=== PATIENT | male | born 1970 | race Caucasian/White ===

== ENCOUNTER 2018-06-04 14:44 | Emergency (ER) | payer SELFPAY ==
[~2018-06-04] VITALS: Ht 175.3 cm; Wt 88.5 kg
--- NOTE | 2018-06-04 15:15 | ED EENT ---
History of Present Illness General Chief Complaint: Ear Problems Stated Complaint: EAR PAIN Nursing Triage Note: C/O L EAR PAIN FOR 2-3 DAYS History of Present Illness Date Seen by Provider: Jun 04, 2018 Time Seen by Provider: 14:50 Initial Comments 13-year-old male presents for left ear pain. He states that it began yesterday and has continued today. He denies any recent ear infections or swimming. He reports since childhood having problems with impacted cerumen. Timing/Duration: yesterday Location: ear (L) Prearrival Treatment: no prearrival treatment Associated Symptoms: denies symptoms Allergies and Home Medications Allergies Coded Allergies: Penicillins (Verified Allergy, Unknown, 06/04/18) Home Medications No Active Prescriptions or Reported Meds Patient Home Medication List Home Medication List Reviewed: Yes Review of Systems Constitutional: no symptoms reported, see HPI Ears: See HPI, Pain, Other (patient denies change in hearing) All Other Systems Reviewed Negative Unless Noted: Yes Past Wrzutba-Ptvzdw-Qlpion Hx Past Med/Social Hx: Reviewed Nursing Past Med/Soc Hx Patient Social History Alcohol Use: Occasionally Uses Recreational Drug Use: Yes Smoking Status: Current Everyday Smoker 2nd Hand Smoke Exposure: Yes Recent Foreign Travel: No Contact w/Someone Who Travel: No Recent Infectious Disease Expo: No Past Medical History Surgeries: No Respiratory: No Cardiac: No Neurological: No Genitourinary: No Gastrointestinal: No Musculoskeletal: No Endocrine: No HEENT: No Cancer: No Did You Recieve Any Treatments: No Psychosocial: No Integumentary: No Physical Exam Vital Signs Vital Signs - First Documented 06/04/18 14:48 Temp 98.5 Pulse 100 Resp 18 B/P (MAP) 143/107 (119) Pulse Ox 97 O2 Delivery Room Air Height, Weight, BMI Height: 5'9.00" Weight: 195lbs. oz. 88.339294dn; BMI Method:Stated General Appearance: WD/WN, no apparent distress Eyes: bilateral eye normal inspection, bilateral eye PERRL, bilateral eye EOMI Ears: right ear canal normal, right ear TM normal; left ear swelling, left ear other (hard dark brown to black cerumen, approximately 90% of the canal occluded.); bilateral ear auricle normal Nose: normal inspection; No active bleeding, No discharge Mouth/Throat: normal mouth inspection, pharynx normal Neck: non-tender, full range of motion, supple, normal inspection Cardiovascular: normal peripheral pulses, regular rate, rhythm Respiratory: chest non-tender, lungs clear Neurologic/Psychiatric: no motor/sensory deficits, alert, normal mood/affect, oriented x 3 Progress/Results/Core Measures Results/Orders Vital Signs/I&O 06/04/18 06/04/18 14:48 15:20 Temp 98.5 Pulse 100 92 Resp 18 18 B/P (MAP) 143/107 (119) 141/100 Pulse Ox 97 98 O2 Delivery Room Air Blood Pressure Mean: 119 Progress Progress Note : Time: 14:50 Progress Note Initial evaluation completed, attempted to remove wax, due to how hard it was and the sensitivity of the ear canal only a small amount was removed. Empty to irrigate with sterile saline, no results. Patient did not tolerate further removal of the wax. Discharge instructions were explained to the patient including the ehkh-fyu-lvzvjrj use of medication to soften the wax and then Murine Earigate to remove it. There was no evidence of otitis externa present, only a small window of the TM was visible and did not show erythema or bulging. Discussed the importance of him following up with her primary care provider in establishing care for check on his blood pressure. He agreed with this treatment plan. Departure Impression Primary Impression: Impacted cerumen Qualified Codes: H61.22 - Impacted cerumen, left ear Additional Impression: Essential hypertension Disposition: 01 HOME, SELF-CARE Condition: Improved Departure-Patient Inst. Decision time for Depature: 15:10 Referrals: NO,LOCAL PHYSICIAN (PCP) Primary Care Physician Patient Instructions: Ear Wax Impaction (DC), High Blood Pressure (DC) Add. Discharge Instructions: Use kiru-urw-ctutewe Debrox drops to soften the wax in your ears, for 3-5 days. Then use Murine irrigate, to remove the wax. You may use Tylenol 650 mg alternating every 4 hours with ibuprofen 600 mg for the pain. Establish care with a primary care provider, for follow-up at an urgent care. Need to have blood pressure re-assessed and possibly treated. Return to emergency department for acute, urgent health care needs. All discharge instructions reviewed with patient and/or family. Voiced understanding. Scripts No Active Prescriptions or Reported Meds PAZ CHILDERS Jun 04, 2018 15:14
[2018-06-04 15:20] VITALS: BP 141/100
== END 2018-06-04 15:20 | disposition home or self-care (01) ==
LOC: EDUNIT# 14:44 → ER 14:46
DX: H61.22 Impacted cerumen, left ear (principal); I10 Essential (primary) hypertension; F17.200 Nicotine dependence, unspecified, uncomplicated; Z88.0 Allergy status to penicillin
CPT/HCPCS: 99282

== ENCOUNTER → 2021-02-21 | Outpatient (CLI) | payer OTHER ==
[~2021-02-21] MED LIST: NEO/5DRO3 OP
--- NOTE | 2021-02-21 12:47 | Diagnostic Imaging Report ---
Indication: Pain and a knot in the left shoulder. Time of Exam: 10:59 AM Two views left clavicle were obtained. Acromioclavicular and glenohumeral alignment are normal. Clavicle is intact. No fractures are seen. Overlying soft tissues are unremarkable. IMPRESSION: No acute abnormality is detected. Dictated by: Dictated on workstation # [id number]
--- NOTE | 2021-02-21 12:50 | Diagnostic Imaging Report ---
INDICATION: Left shoulder pain. TIME OF EXAM: 10:57 AM Three views left shoulder demonstrate normal glenohumeral and acromioclavicular alignment. Acromial humeral space is normal. No fracture or dislocation is seen. IMPRESSION: No acute bony abnormality is detected. Dictated by: Dictated on workstation # [id number]
== END ==
LOC: RAD 10:13
PROVIDERS: ATTEND Nurse Practitioner Family
DX: M25.512 Pain in left shoulder (principal); R22.32 Localized swelling, mass and lump, left upper limb
CPT/HCPCS: 73000; 73030

== ENCOUNTER → 2021-03-10 | Outpatient (CLI) | payer OTHER ==
--- NOTE | 2021-03-10 11:57 | Diagnostic Imaging Report ---
INDICATION: Swelling and lump in the left upper extremity. Palpable lump in the supraclavicular location at the level of the distal clavicle was evaluated. There is a hypoechoic nodule at this location measuring 7 mm x 5 mm x 9 mm. No internal vascularity is present. In addition, palpable lump left axilla was evaluated. There is a questionable lymph node measuring approximate 2.1 x 1.7 x 1.2 cm. No fluid collections are seen. IMPRESSION: Hypoechoic nodule at the level of the distal left clavicle, indeterminate. MRI of the left shoulder would be useful for better characterization. Dictated by: Dictated on workstation # [id number]
== END ==
LOC: RAD 10:00
PROVIDERS: ATTEND Nurse Practitioner Family
DX: R22.32 Localized swelling, mass and lump, left upper limb (principal)
CPT/HCPCS: 76881

== ENCOUNTER 2021-04-05 18:59 | Emergency (ER) | payer OTHER ==
[~2021-04-05] VITALS: Ht 175.2 cm; Wt 95.0 kg
--- NOTE | 2021-04-05 19:25 | ED Respiratory ---
General Chief Complaint: Respiratory Problems Stated Complaint: TICK BITES/SOA Nursing Triage Note: Pt ambulatory into ER with complaint of SOA x2 days after having two tick bites on back. Pt states that he feels like this comes and goes. Pt doesn't appear in distress and vitals are stable at this time. Pt denies chest pain or other symptoms. Source: patient Exam Limitations: no limitations History of Present Illness Date Seen by Provider: Apr 05, 2021 Time Seen by Provider: 19:09 Initial Comments Patient is a 51-year-old male who presents to the emergency department with a chief complaint of shortness of breath. Patient states that he has had the symptoms off and on for the last couple of days. Patient relates that he had 2 tick bites on his back 2 or 3 days ago. These were removed and he saw his primary care provider, Dr. Lopez. He states that he was started on antibiotics, doxycycline for tickborne illness. Patient denies any fevers, chills or worsening rashes. He states that he has 2 rather large red areas on his back. One on his left shoulder and 1 in his left mid back. Patient states that they are quite tender to palpation. He denies any other complaints of rash, joint swelling, chest pain, nausea, vomiting, dizziness or other symptoms. Patient does smoke up to three quarters of a pack of cigarettes daily. He states that he feels like he can take in a deep breath but he feels like he is not getting enough oxygen. No sick contacts. All other review of systems reviewed and negative except as stated above. Timing/Duration: yesterday Severity: moderate Prior Episodes/Possible Cause: illness exposure (Tick bite) Associated Symptoms: shortness of breath Allergies and Home Medications Allergies Coded Allergies: Penicillins (Verified Allergy, Unknown, 06/04/18) Home Medications David/Polymyx B Sulf/Dexameth 5 Ml Drops.susp, 2 DROPS OP QID Prescribed by: LILI ALVAREZ on 06/08/18 5172 Patient Home Medication List Home Medication List Reviewed: Yes Review of Systems Review of Systems Constitutional: see HPI EENTM: no symptoms reported Respiratory: No cough; short of breath Cardiovascular: no symptoms reported; No chest pain Gastrointestinal: no symptoms reported Genitourinary: no symptoms reported Musculoskeletal: no symptoms reported Skin: rash (Left back) Psychiatric/Neurological: Anxiety All Other Systems Reviewed Negative Unless Noted: Yes Past Yygbhsq-Dyeflv-Xsqrxi Hx Patient Social History Alcohol Use: Occasionally Uses Number of Drinks Today: AA Alcohol Beverage of Choice: Beer Smoking Status: Current Everyday Smoker Type Used: Cigarettes 2nd Hand Smoke Exposure: Yes Recent Infectious Disease Expo: No Recent Hopitalizations: No Immunizations Up To Date Tetanus Booster (TDap): Less than 5yrs PED Vaccines UTD: Yes Seasonal Allergies Seasonal Allergies: No Past Medical History Surgeries: No Respiratory: No Cardiac: No Neurological: No Genitourinary: No Gastrointestinal: No Musculoskeletal: No Endocrine: No HEENT: No Cancer: No Did You Recieve Any Treatments: No Psychosocial: No Integumentary: No Blood Disorders: No Physical Exam Vital Signs - First Documented 04/05/21 19:10 Temp 36.6 Pulse 94 Resp 20 B/P (MAP) 139/103 (115) Pulse Ox 98 O2 Delivery Room Air Capillary Refill : Less Than 3 Seconds Height: 5'9.00" Weight: 195lbs. oz. 88.931123xt; 30.00 BMI Method:Stated General Appearance: WD/WN, no apparent distress Eyes: Bilateral Eye Normal Inspection, Bilateral Eye PERRL, Bilateral Eye EOMI HEENT: PERRL/EOMI Neck: normal inspection Respiratory: no respiratory distress, no accessory muscle use; No decreased breath sounds, No accessory muscle use, No rales, No rhonchi; wheezing (Diffuse expiratory wheezing noted throughout bilateral lung pardo) Cardiovascular: regular rate, rhythm, no edema Gastrointestinal: normal bowel sounds, non tender, soft Extremities: normal range of motion, normal inspection, no pedal edema Neurologic/Psychiatric: no motor/sensory deficits, alert, normal mood/affect, oriented x 3 Skin: normal color, warm/dry, other (Patient has 2 lesions on the back one at the left posterior shoulder 1 in the left mid back each about 5 cm in diameter. Slightly raised and erythematous without areas of central clearing. These areas are tender to palpation. No other lesions to the skin are noted) Progress/Results/Core Measures Suspected Sepsis Recent Fever Within 48 Hours: No Infection Criteria Present: None New/Unexplained Altered Menta: No Sepsis Screen: No Definite Risk SIRS Temperature: Pulse: 94 Respiratory Rate: 20 Blood Pressure 139 /103 Mean: 115 Results/Orders My Orders Orders - WILLIS SHARP MD Albuterol/Ipra Inhalation Soln (Duoneb I (6/19/21 19:30) Svn Small Volume Nebulizer (04/05/21 19:17) Vital Signs/I&O 04/05/21 04/05/21 19:10 19:30 Temp 36.6 Pulse 94 90 Resp 20 20 B/P (MAP) 139/103 (115) 139/103 Pulse Ox 98 99 O2 Delivery Room Air Room Air Capillary Refill : Less Than 3 Seconds Blood Pressure Mean: 115 Progress Note : Time: 19:26 Progress Note Notified by the nurse that the patient decided to leave [place] after my evaluation and plan of treatment had been started. The patient was frustrated that I was not addressing his concerns. I had advised the patient that if he was on doxycycline he was receiving the appropriate treatment for Lyme disease and other tickborne illnesses. I advised him that I thought maybe a couple of things were going on at the same time. The patient was profoundly wheezy in no respiratory distress and oxygen saturations 96 to 97% on room air. My plan was to obtain a chest x-ray and give him a breathing treatment. I was then going to review with him the treatment for Lyme disease and the natural course and progression of the disease. Apparently the patient was very frustrated with this and decided to leave. Departure Impression Primary Impression: Shortness of breath Additional Impression: Skin rash Disposition: 07 AGAINST MEDICAL ADVICE Condition: Stable Departure-Patient Inst. Referrals: ECCI LOPEZ MD (PCP/Family) Primary Care Physician Copy Copies To 1: CECI LOPEZ MD, KATHRYN M MD Apr 05, 2021 19:25
[2021-04-05 19:30] VITALS: BP 139/103
[2021-04-05] MEDS ORDERED: RT-ALBUTEROL/IPRATROPIUM 3 ML (DUONEB) VIAL INH ONE (19:30)
== END 2021-04-05 19:30 | disposition left against medical advice (07) ==
LOC: EDUNIT# 18:59 → ER 19:02
DX: R06.02 Shortness of breath (principal); R21 Rash and other nonspecific skin eruption; F17.210 Nicotine dependence, cigarettes, uncomplicated; Z88.0 Allergy status to penicillin

== ENCOUNTER → 2021-05-05 | Outpatient (CLI) | payer OTHER ==
--- NOTE | 2021-05-05 09:58 | Diagnostic Imaging Report ---
PROCEDURE: US Hepatic (Liver). TECHNIQUE: Multiple real-time grayscale images were obtained over the right upper quadrant in various projections. INDICATION: Elevated liver function studies. FINDINGS: Liver measures 21 cm, its dense parenchyma is consistent with underlying fatty infiltration. This limits acoustical penetrability. No discrete liver mass can be found and no evidence for cyst. The bile ducts are nondilated. The gallbladder appeared normal. Extrahepatic duct is obscured. The intrahepatic ducts nondilated. The pancreas, aorta and much of the IVC are also obscured from visualization by gas. The unobstructed right kidney normal in size, cortical thickness and echotexture measuring 11.8 cm. There is no ascites. The Chang sign negative. IMPRESSION: Normal gallbladder. No stones or bile duct dilatation. Echodense fatty liver with no ascites, otherwise normal. Dictated by: Dictated on workstation # [id number]
== END ==
LOC: RAD 08:00
PROVIDERS: ATTEND Nurse Practitioner Family
DX: K76.0 Fatty (change of) liver, not elsewhere classified (principal)
CPT/HCPCS: 76705

== ENCOUNTER 2021-08-13 13:07 | Emergency (ER) | payer OTHER ==
[~2021-08-13] VITALS: Ht 175 cm; Wt 95.0 kg
[2021-08-13 13:16] VITALS: BP 166/124
--- NOTE | 2021-08-13 13:44 | ED Back Pain ---
General Chief Complaint: Back Problems Stated Complaint: BACK PAIN Nursing Triage Note: ARRVED VIA AMB TO FAST TRACK. COMPLAINS OF BACK PAIN STARTING AROUN 1500 YESTERDAY. HX OF BACK PAIN THAT USUALLY GOES AWAY BUT THIS HAS NOT. TOOK IBUPROFEN 800MG THIS AM. 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, AND NOTICED SOME PAIN IN MID AND LOWER BACK WHEN HE GOT OFF WORK YESTERDAY PAIN HAS CONTINUED TO WORSEN THROUGH THE NIGHT AND TODAY TOOK IBUPROFEN 800 MG THIS AM WITHOUT RELIEF PAIN IS WORSE WITH CERTAIN MOVEMENTS/POSITIONS STATES PAIN OCCASIONALLY SHOOTS DOWN TO BOTH HIPS AND DOWN BOTH ARMS NO NECK PAIN LEFT HAND FELT SLIGHTLY TINGLY YESTERDAY--BEFORE THE BACK PAIN STARTED HAS CHRONIC LEFT SHOULDER PROBLEMS--STATES HE WAS DX WITH A "CYST" AND HAS CHRONIC BILATERAL AXILLARY LYMPH NODE SWELLING--WORKUP'S HAVE ALL BEEN NEGATIVE FOR INFECTION OR MALIGNANCY PT CHRONIC BACK PAIN FOR YEARS, BUT IS NORMALLY IN THE UPPER BACK, AND HAS CHRONIC BACK SPASMS FOR YEARS--DOES NOT TAKE ANY MEDICATION FOR THOSE PROBLEMS NO PROBLEMS WALKING NO PROBLEMS URINATING OR WITH BM'S NO FEVER STATES A COUPLE OF WEEKS AGO, HE HAD SEVERE PAIN IN THIS SAME AREA, LASTED ABOUT A WEEK DID NOT SEEK CARE AT THAT TIME, SYMPTOMS GOT BETTER, AND THEN RETURNED YESTERDAY Other Comments PCP: DR. FRANCISCO Allergies and Home Medications Allergies Coded Allergies: Penicillins (Verified Allergy, Unknown, 06/04/18) Patient Home Medication List Home Medication List Reviewed: Yes Cyclobenzaprine HCl (Cyclobenzaprine HCl) 10 Mg Tablet, 10 MG PO Q8H PRN for SPASMS Prescribed by: DAVE JUAREZ on 08/13/21 1433 Methylprednisolone (Medrol) 4 Mg Tab.ds.pk, 4 MG PO UD Prescribed by: DAVE JUAREZ on 08/13/21 1433 David/Polymyx B Sulf/Dexameth (Maxitrol Eye Drops) 5 Ml Drops.susp, 2 DROPS OP QID Prescribed by: LILI ALVAREZ on 06/08/18 1844 Review of Systems Constitutional: no symptoms reported Respiratory: no symptoms reported Cardiovascular: no symptoms reported Gastrointestinal: no symptoms reported Musculoskeletal: see HPI Skin: no symptoms reported Psychiatric/Neurological: See HPI Past Qrwhxyt-Hsuzhy-Tubcsa Hx Patient Social History Tobacco Use?: Yes (1 PPD) Tobacco type used: Cigarettes Smoking Status: Current Everyday Smoker Substance use?: Yes Substance type: Marijuana Additional substance use comme: THC IN PAST Alcohol Use?: Yes Alcohol type: Beer Alcohol Frequency: Couple times a week Immunizations Up To Date Tetanus Booster (TDap): Less than 5yrs PED Vaccines UTD: Yes Seasonal Allergies Seasonal Allergies: No Past Medical History Surgeries: No Respiratory: No Cardiac: No Neurological: No Genitourinary: No Gastrointestinal: No Musculoskeletal: Yes (CHRONIC LEFT SHOULDER PAIN ) Chronic Back Pain Endocrine: No HEENT: No Cancer: No Did You Recieve Any Treatments: No Psychosocial: No Integumentary: No Blood Disorders: No Physical Exam Vital Signs Vital Signs - First Documented 08/13/21 13:16 Temp 36.5 Pulse 79 Resp 16 B/P (MAP) 166/124 (138) Pulse Ox 95 O2 Delivery Room Air Capillary Refill : Less Than 3 Seconds Height, Weight, BMI Height: 5'9.00" Weight: 195lbs. oz. 88.655517tk; 31.00 BMI Method:Stated General Appearance: No Apparent Distress, WD/WN, Other (TALKS AT LENGTH WITH OUT DIFFICULTY) Neck: Full Range of Motion, Normal Inspection, Non Tender, Supple Cardiovascular: Regular Rate, Rhythm, No Edema, No Murmur, Normal Peripheral Pulses Respiratory: Normal Breath Sounds, No Accessory Muscle Use, No Respiratory Distress Gastrointestinal: Non Tender, Soft Extremity: Normal Capillary Refill, Normal Inspection, Normal Range of Motion, Non Tender, No Calf Tenderness, No Pedal Edema, Other (DTR'S INTACT; NEGATIVE STRAIGHT LEG RAISING BILATERALLY) Neurologic/Psychiatric: Alert, Oriented x3, No Motor/Sensory Deficits, Normal 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, 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 Norm as Tested; No Abnormal Cerebellar Tests Skin: Normal Color, Warm/Dry; No Rash Progress/Results/Core Measures Results/Orders Lab Results Laboratory Tests Test 08/13/21 13:43 Range/Units Urine Color YELLOW Urine Clarity CLEAR Urine pH 6.5 5-9 Urine Specific [place] <=1.005 1.016-1.022 Urine Protein NEGATIVE NEGATIVE Urine Glucose (UA) NEGATIVE NEGATIVE Urine Ketones NEGATIVE NEGATIVE Urine Nitrite NEGATIVE NEGATIVE Urine Bilirubin NEGATIVE NEGATIVE Urine Urobilinogen 0.2 < = 1.0 MG/DL Urine Leukocyte Esterase NEGATIVE NEGATIVE Urine RBC (Auto) NEGATIVE NEGATIVE Urine RBC NONE /HPF Urine WBC NONE /HPF Urine Squamous Epithelial Cells RARE /HPF Urine Crystals NONE /LPF Urine Bacteria NEGATIVE /HPF Urine Casts NONE /LPF Urine Mucus NEGATIVE /LPF Urine Culture Indicated NO My Orders Orders - DAVE JUAREZ DO Ct Thoracic/Lumbar Spine Wo (08/13/21 13:32) Ua Culture If Indicated (08/13/21 13:32) Vital Signs/I&O 08/13/21 13:16 Temp 36.5 Pulse 79 Resp 16 B/P (MAP) 166/124 (138) Pulse Ox 95 O2 Delivery Room Air Blood Pressure Mean: [address] THORACIC/LUMBAR SPINE--PER RADIOLOGIST REPORT AT 1431 FINDINGS: No acute fracture or dislocation is seen in the thoracic and lumbar spine. Alignment is anatomic. No suspicious focal osseous lesions are seen. Vertebral body heights are maintained. There is partial lumbarization of the S1 vertebral body. Endplate sclerotic changes are seen at the L1-L2 level. Mild degenerative changes are present in the lumbar spine with disc osteophyte complex and facet hypertrophy, greatest at L1-L2. The included lungs are clear. The paraspinal soft tissues are unremarkable. The bilateral SI joints demonstrate normal alignment. There is calcified aortic and iliac atherosclerotic plaque without aneurysm. IMPRESSION: 1. No acute fracture or dislocation in the thoracic and lumbar spine. 2. Endplate sclerotic changes at the L1-L2 level. Reviewed: Reviewed by Me Departure Impression Primary Impression: MID AND LOWER BACK PAIN Disposition: 01 HOME, SELF-CARE Condition: Stable Departure-Patient Inst. Decision time for Depature: 14:30 Referrals: CECI FRANCISCO MD (PCP/Family) Primary Care Physician Patient Instructions: Upper Back Pain (DC), Low Back Pain (DC) Add. Discharge Instructions: MOIST HEAT TO SORE AREAS AT 20 MINUTE INTERVALS NO LIFTING OVER 10 LBS, NO TWISTING OR BENDING AT WAIST X 1 WEEK FOLLOW UP WITH DR. FRANCISCO IN 3-5 DAYS FOR FURTHER CARE All discharge instructions reviewed with patient and/or family. Voiced understanding. Scripts Methylprednisolone (Medrol) 4 Mg Tab.ds.pk 4 MG PO UD for 6 Days, #21 PKG PER DOSE PACK INSTRUCTIONS Prov: DAVE JUAREZ DO 08/13/21 Cyclobenzaprine HCl (Cyclobenzaprine HCl) 10 Mg Tablet 10 MG PO Q8H PRN for SPASMS, #15 TAB 0 Refills Prov: DAVE JUAREZ DO 08/13/21 Work/School Note: Work Release Form Date Seen in the Emergency Department: Aug 13, 2021 Return to Work: Aug 14, 2021 Other Restrictions Listed Below: NO LIFTING OVER 10 LBS. NO TWISTING OR BENDING AT WAIST X 1 WEEK DAVE JUAREZ DO Aug 13, 2021 13:44
[2021-08-13 13:50] LABS: BILIRUBIN,URINE NEGATIVE (NEGATIVE); CLARITY,URINE CLEAR; COLOR,URINE YELLOW; GLUCOSE, URINE (UA) NEGATIVE (NEGATIVE); KETONES,URINE NEGATIVE (NEGATIVE); LEUKOCYTE ESTERASE ,URINE NEGATIVE (NEGATIVE); NITRITE,URINE NEGATIVE (NEGATIVE); PH,URINE 6.5 (5-9); PROTEIN,URINE NEGATIVE (NEGATIVE)
[2021-08-13 13:59] LABS: BACTERIA,URINE NEGATIVE /HPF; SQUAMOUS EPITHELIAL CELL,UR RARE /HPF
--- NOTE | 2021-08-13 14:28 | Diagnostic Imaging Report ---
PROCEDURE: CT thoracic and lumbar spine without contrast. TECHNIQUE: Multiple contiguous axial images were obtained through the thoracic and lumbar spine without the use of intravenous contrast. Sagittal and coronal reformations were then performed. All CT scans use one or more of the following dose optimizing techniques: automated exposure control, MA and/or KvP adjustment based on a patient size and exam type, or iterative reconstruction. INDICATION: Diffuse mid and lower back pain. COMPARISON: None. FINDINGS: No acute fracture or dislocation is seen in the thoracic and lumbar spine. Alignment is anatomic. No suspicious focal osseous lesions are seen. Vertebral body heights are maintained. There is partial lumbarization of the S1 vertebral body. Endplate sclerotic changes are seen at the L1-L2 level. Mild degenerative changes are present in the lumbar spine with disc osteophyte complex and facet hypertrophy, greatest at L1-L2. The included lungs are clear. The paraspinal soft tissues are unremarkable. The bilateral SI joints demonstrate normal alignment. There is calcified aortic and iliac atherosclerotic plaque without aneurysm. IMPRESSION: 1. No acute fracture or dislocation in the thoracic and lumbar spine. 2. Endplate sclerotic changes at the L1-L2 level. Dictated by: Dictated on workstation # [id number]
[2021-08-13] MEDS ORDERED: METH4TAB PO (14:33)
[2021-08-13] MEDS ORDERED: CYCL10TA9 PO (14:33)
== END 2021-08-13 14:41 | disposition home or self-care (01) ==
LOC: EDUNIT# 13:07 → ER 13:08
DX: M54.50 Low back pain, unspecified (principal); F17.210 Nicotine dependence, cigarettes, uncomplicated
CPT/HCPCS: 72128; 72131; 81000

== ENCOUNTER 2021-10-12 20:11 | Emergency (ER) | payer OTHER ==
[~2021-10-12 20:11] MED LIST changes: +CYCL10TA25 PO; +METH4TAB PO
--- OUTSIDE RECORDS SUMMARY | 2021-10-12 20:14 | XMS REPORT | CCD ---
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 Insurance [id number] U nknown Unknown Family History Family History data not found Social History Social History Element Codes Description Effective Dates Marital status Unknown cornelia gomez 03/14/2021 Number of children Unknown 5 03/14/2021 Employment Unknown Currently employed 03/14/[address]: 75649659 Current every day smoker Number of cigarettes/day Unknown 20 (One Pack) [address]: 459980 Currently drinks alcohol 03/14 Frequency of drinks SNOMED CT: 010468974 1-4 drinks per week Allergies, Adverse Reactions, Alerts Substance Reaction Codes Entered Date Inactivated Date Status Penicillin Unknown 03/14/2021 No Inactive Date Active amoxicillin Unknown 03/14/2021 No Inactive Date Active Problems Condition Codes Effective Dates Condition Status Low back pain ICD-10: M54.50 ICD-9: 724.2 08/18/2021 Active Enlarged lymph nodes in armpit ICD-10: R59.0 ICD-9: 785.6 03/14/2021 Active Nicotine dependence, cigarettes, uncomplicated ICD-10: F17.210 ICD-9: 305.1 03/14/2021 Active Patchy loss of hair ICD-10: L65.9 ICD-9: 704.00 04/28/2021 Active Essential (primary) hypertension ICD-10: I10 ICD-9: 401.1 04/28/2021 Active Tick bite of back ICD-10: S30.860A ICD-9: 911.4 04/03/2021 Active Mass of joint of left shoulder ICD-10: M25.812 ICD-9: 719.61 03/14/2021 Active Medications Medication Codes Instructions Start Date Stop Date Status Fill Instructions ketoconazole 2 % shampoo RxNorm: 545903 Use 1 Applicati on Topical three times per week 04/28/2021 05/27/2021 Inactive doxycycline hyclate 100 mg tablet RxNorm: 8690307 Take 1 Tablet(s) Oral two times a day 04/03/2021 04/23/2021 Inactive doxycycline hyclate 100 mg tablet RxNorm: 7196918 Take 1 Tablet(s) Oral two times a day 04/03/2021 04/03/2021 Inactive Voltaren Arthritis Pain 1 % topical gel RxNorm: 073624 4 Gram(s) Topical four times a day 03/31/2021 08/27/2021 Active naproxen 500 mg tablet RxNorm: 718499 1 Tablet(s) Oral two time s a day 03/31/2021 04/09/2021 Inactive Voltaren Arthritis Pain 1 % topical gel RxNorm: 382844 4 Gram(s) Topical four times a day 03/31/2021 03/30/2021 Inactive naproxen 500 mg tablet RxNorm: 538374 1 Tablet(s) Oral two time s a day 03/31/2021 03/30/2021 Inactive Medication Administered No Medication Administered data Immunizations No Immunization data Results Observation Observation Code Item Item Code Result Date S [facility] Location CARMEN (BENNIE) ROUTINE F307 Antinuclear Antibody Negative 05/01/2021 Unknown Cbc With Differential Ord2 WBC 7.47 K/ul 04/29/20 Unknown Cbc With Differential Ord2 RBC 4.69 M/ul 04/29/20 21 Unknown Cbc With Differential Ord2 HGB 15.8 g/dl 04/29/20 21 Unknown Cbc With Differential Ord2 HCT 48.7 % 04/29/20 21 Unknown Cbc With Differential Ord2 Neut% 62.2 % 04/29/20 21 Unknown Cbc With Differential Ord2 MCV 103.8 fl 04/29/20 Unknown Cbc With Differential Ord2 Lymph% 24.0 % 04/29/20 21 Unknown Cbc With Differential Ord2 [place]% 9.4 % 04/29/20 21 Unknown Cbc With Differential Ord2 MCH 33.7 pg 04/29/20 21 Unknown Cbc With Differential Ord2 Eos% 3.6 % 04/29/20 21 Unknown Cbc With Differential Ord2 MCHC 32.4 pg 04/29/20 21 Unknown Cbc With Differential Ord2 Baso% 0.8 % 04/29/20 21 Unknown Cbc With Differential Ord2 PLT 191 K/ul 04/29/20 21 Unknown Cbc With Differential Ord2 RDW 13.6 % 04/29/20 21 Unknown Cbc With Differential Ord2 Neut ABS# 4.65 K/ul 04/29/20 21 Unknown Cbc With Differential Ord2 Lymph ABS# 1.79 K/ul 021 Unknown Cbc With Differential Ord2 [place] ABS# 0.7 K/ul 04/29/20 21 Unknown Cbc With Differential Ord2 Eos ABS# 0.3 K/ul 04/29/20 21 Unknown Cbc With Differential Ord2 Baso ABS# 0.1 K/ul 04/29/20 21 Unknown C-Reactive Protein Qnt Crqnt CRP 0.5 mg/dl 2020 Unknown Sed Rate Ord21 ESR 5 mm/hr 04/29/2021 Unknown Comp Metabolic Wni470 NA 135 mEq/L 04/29/2021 Unkn own Comp Metabolic Oct854 K 4.0 mEq/L 04/29/2021 Unkn own Comp Metabolic Xha219 CL 103 mEq/L 04/29/2021 Unkn own Comp Metabolic Sts835 CO2 23.0 mEq/L 04/29/2021 Unk nown Comp Metabolic Tqf304 ANION GAP 13 04/29/2021 Unkn own Comp Metabolic Eyy577 GLUCOSE 97 mg/dL 04/29/2021 Unkn own Comp Metabolic Yuz767 Creat 0.7 mg/dL 04/29/2021 Unkn own Comp Metabolic Zpc559 eGFR 123 ml/min/1.73m2 021 Unknown Comp Metabolic Ozs527 BUN 8 mg/dL 04/29/2021 Unkn own Comp Metabolic Khq819 B/C Ratio 11.3 Ratio 04/29/2021 Unk nown Comp Metabolic Aay074 CALCIUM 9.4 mg/dL 04/29/2021 Unkn own Comp Metabolic Zqv740 ALK PHOS 77 U/L 04/29/2021 Unkn own Comp Metabolic Nxf374 AST(SGOT) 51 U/L 04/29/2021 Unkn own Comp Metabolic Grp949 ALT(SGPT) 93 U/L 04/29/2021 Unkn own Comp Metabolic Khb398 BILI T 0.6 mg/dL 04/29/2021 Unkn own Comp Metabolic Vqb902 ALBUMIN 4.5 g/dL 04/29/2021 Unkn own Comp Metabolic Luj317 TPRO 7.3 g/dL 04/29/2021 Unkn own Comp Metabolic Vvf141 GLOB 2.8 g/dL 04/29/2021 Unkn own Comp Metabolic Pki300 A/G Ratio 1.6 Ratio 04/29/2021 Unkn own Comp Metabolic Wrr068 Osmo 268 mOsmo 04/29/2021 Unkn own Tsh Ord6 TSH (3rd IS) 5.19 uIU/mL 04/29/2021 Unkn own Procedures No Procedures data Vital Signs Date Vital 08/18/2021 Blood Pressure 1: 166/88 Code: 8480-6 BMI: 31.0 Code: 33566-9 Heart Rate 1: 75 bpm Height: 5'9" Code: 8302-2 SpO2: 98% Temperature: 3 6.3 (C) / 97.3 (F) Weight: 210 lbs Code: 49055-6 05/12/2021 Blood Pressure 1: 140/88 Code: 8480-6 BMI: 31.6 Code: 48762-0 Heart Rate 1: 86 bpm Height: 5'9" Code: 8302-2 SpO2: 97% Temperature: 3 6.3 (C) / 97.3 (F) Weight: 214 lbs Code: 73608-6 04/28/2021 Blood Pressure 1: 156/98 Code: 8480-6 Heart Rate 1: 101 bpm Height: 5'9" Code: 8302-2 SpO2: 98% Temperature: 36.2 (C) / 97.2 (F) Weight: Code: 37693-3 04/03/2021 Blood Pressure 1: 142/76 Code: 8480-6 Heart Rate 1: 99 bpm Height: 5'9" Code: 8302-2 SpO2: 97% Temperature: 36.3 (C) / 97.4 (F) Weight: Code: 85337-4 03/14/2021 Blood Pressure 1: 144/76 Code: 8480-6 BMI: 31.0 Code: 93153-8 Heart Rate 1: 79 bpm Height: 5'9" Code: 8302-2 SpO2: 95% Temperature: 3 6.3 (C) / 97.4 (F) Weight: 210 lbs Code: 63431-5 Functional Status No Functional Status data Reason For Visit Reason For Visit Effective Dates Notes Hospital Follow Up 08/18/2021 hair loss 05/12/2021 shoulder pain 04/28/2021 skin lesion 04/03/2021 shoulder pain 03/14/2021 Encounters Encounter Performer Location Codes Date ( EST. PATIENT, LEVEL III Diagnosis: Low back pain[ICD10: M54.50] Yandy Byers MD CPT-4: 35445 08/18/2021 ([id number]) [id number] EST. PATIENT, LEVEL IV Diagnosis: Patchy loss of hair[ICD10: L65.9] Diagnosis: Nicotine dependence, cigarettes, uncomplicated[ICD10: F17.210] Diagnosis: Enlarged lymph nodes in armpit[ICD10: R59.0] Nellie Lopez MD, [facility] CPT-4: 41943 05/12/2021 ([id number]) 44288 EST. PATIENT, LEVEL IV Diagnosis: Patchy loss of hair[ICD10: L65.9] Diagnosis: Enlarged lymph nodes in armpit[ICD10: R59.0] Diagnosis: Essential (primary) hypertension[ICD10: I10] Nellie Lopez MD, [facility] CPT-4: 33201 04/28/2021 ([id number]) 66025 EST. PATIENT, LEVEL III Diagnosis: Tick bite of back[ICD10: S30.860A] Nellie albert MD, [facility] CPT-4: 10637 04/03/2021 OFFICE VISIT, NEW - LEVEL 3 Diagnosis: Mass of joint of left shoulder[ICD10: M25.812] Diagnosis: Enlarged lymph nodes in armpit[ICD10: R59.0] Diagnosis: Nicotine dependence, cigarettes, uncomplicated[ICD10: F17.210] Nellie Lopez MD, [facility] CPT-4: 42937 03/14/2021 Plan of Care Planned Activity Notes Codes Status Date Visit Plan: Low back pain - improving - patient may return to work -no lifting over 10 lbs -continue steroids as directed -patient verbalized understanding of plan. 08/18/2021 Appointment: Nellie Gonzalez WPtel: [address] [place], [place] [phone] [place] (30 min) Complex 08/18/2021 Patient Education: Patient Medication Summary Completed 08/18/2021 Visit Plan: Hair loss- regrowth noted in mustache -continue to monitor and follow up in 1 month Lymph node enlargement -improving -monitor and follow up in 1 month - call if enlarging Tobacco use -recommend screening CT scan - also discussed and recommend tobacco cessation Left shoulder pain - cyst - improved- discussed referral to Ortho - patient wants to wait 05/12/2021 Appointment: Nellie Gonzalez WPtel: [address] [place], [place] [phone] [place] (30 min) Complex 05/12/2021 Patient Education: Patient Medication Summary Completed 05/12/2021 Visit Plan: HTN - elevated today - patie nt is anxious - monitor and follow up in 2 weeks Patchy hair loss -check labs and rx for ketoconazole provided and instructed on use Enlarged lymph nodes -chronic tobacco use -check labs today - discussed imaging studies if lymph node enlargement persists - follow up in 2 weeks, sooner if needed 04/28/2021 Appointment: Nellie Gonzalez WPtel: [address] [place], [place] [phone] [place] (30 min) Complex 04/28/2021 Patient Education: Patient Medication Summary Completed 04/28/2021 Visit Plan: Tick Bite -tick removed toda y in the office- pt given script for treatment of infected tick bite, call for symptoms of worsening infection or nonhealing. 04/03/2021 Appointment: Nellie Gonzalez WPtel: [address] [place], [place] [phone] [place] (30 min) Complex 04/03/2021 Patient Education: Patient Medication Summary Completed 04/03/2021 Visit Plan: Mass of left distal clavicle with lymph node enlargement- ultrasound shows hypoechoic nodule and radiologist recommends MRI - insurance has approved MRI and he is planning to schedule MRI in [place] due to cost - instructed him to get us a copy of MRI as soon as its available Tobacco use- recommend smoking cessation 03/14/2021 Appointment: Nellie Gonzalez WPtel: [phone] [place] New Patient 03/14/2021 Patient Education: Patient Medication Summary Completed 03/14/2021 Patient Education: Smoking and Tobacco Addiction Completed 03/14/2021 Instructions Comment . Low back pain - improving - patient ma y return to work -no lifting over 10 lbs -continue steroids as directed -patient verbalized understanding of plan. . Hair loss- regrowth noted in mustache -continue to monitor and follow up in 1 month Lymph node enlargement -improving -monitor and follow up in 1 month - call if enlarging Tobacco use -recommend screening CT scan - also discussed and recommend tobacco cessation Left shoulder pain - cyst - improved- discussed referral to Ortho - patient wants to wait . HTN - elevated today - patient is anxi ous - monitor and follow up in 2 weeks Patchy hair loss -check labs and rx for ketoconazole provided and instructed on use Enlarged lymph nodes -chronic tobacco use -check labs today - discussed imaging studies if lymph node enlargement persists - follow up in 2 weeks, sooner if needed . Tick Bite -tick removed today in the o ffice- pt given script for treatment of infected tick bite, call for symptoms of worsening infection or nonhealing. fasting labs . Mass of left distal clavi raphael with lymph node enlargement- ultrasound shows hypoechoic nodule and radiologist recommends MRI - insurance has approved MRI and he is planning to schedule MRI in [place] due to cost - instructed him to get us a copy of MRI as soon as its available Tobacco use- recommend smoking cessation Medical Equipment No Medical Equipment data Health Concerns Section Health Concerns data not found Goals Section Goals data not found Interventions Section Interventions data not found Health Status Evaluations/Outcomes Section Health Status Evaluations/Outcomes data not found Advance Directives No Advance Directive data
--- OUTSIDE RECORDS SUMMARY | 2021-10-12 20:14 | XMS REPORT | CCD ---
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 Insurance [id number] U nknown Unknown Family History Family History data not found Social History Social History Element Codes Description Effective Dates Marital status Unknown cornelia gomez 03/14/2021 Number of children Unknown 5 03/14/2021 Employment Unknown Currently employed 03/14/[address]: 31152099 Current every day smoker Number of cigarettes/day Unknown 20 (One Pack) [address]: 742373 Currently drinks alcohol 03/14 Frequency of drinks SNOMED CT: 923057328 1-4 drinks per week Allergies, Adverse Reactions, [...] Fill Instructions ketoconazole 2 % shampoo RxNorm: 742587 Use 1 Applicati on Topical three times per week 04/28/2021 05/27/2021 Inactive doxycycline hyclate 100 mg tablet RxNorm: 6526387 Take 1 Tablet(s) Oral two times a day 04/03/2021 04/23/2021 Inactive doxycycline hyclate 100 mg tablet RxNorm: 3193191 Take 1 Tablet(s) Oral two times a day 04/03/2021 04/03/2021 Inactive Voltaren Arthritis Pain 1 % topical gel RxNorm: 439745 4 Gram(s) Topical four times a day 03/31/2021 08/27/2021 Active naproxen 500 mg tablet RxNorm: 346416 1 Tablet(s) Oral two time s a day 03/31/2021 04/09/2021 Inactive Voltaren Arthritis Pain 1 % topical gel RxNorm: 976049 4 Gram(s) Topical four times a day 03/31/2021 03/30/2021 Inactive naproxen 500 mg tablet RxNorm: 503282 1 Tablet(s) Oral two time s a day 03/31/2021 03/30/2021 Inactive Medication Administered No Medication Administered data Immunizations No Immunization data Results Observation Observation Code Item Item Code Result Date S [facility] Location CARMEN (BENNIE) ROUTINE F307 Antinuclear Antibody [...] 04/29/20 21 Unknown Cbc With Differential Ord2 [place]% 9.4 % 04/29/20 21 Unknown Cbc With [...] K/ul 021 Unknown Cbc With Differential Ord2 [place] ABS# 0.7 K/ul 04/29/20 21 Unknown Cbc With Differential Ord2 Eos ABS# 0.3 K/ul 04/29/20 21 Unknown Cbc With Differential Ord2 Baso ABS# 0.1 K/ul 04/29/20 21 Unknown C-Reactive Protein Qnt Crqnt CRP 0.5 mg/dl 2020 Unknown Sed Rate Ord21 ESR 5 mm/hr 04/29/2021 Unknown Comp Metabolic Uhg661 NA 135 mEq/L 04/29/2021 Unkn own Comp Metabolic Aci507 K 4.0 mEq/L 04/29/2021 Unkn own Comp Metabolic Tvr506 CL 103 mEq/L 04/29/2021 Unkn own Comp Metabolic Ucd908 CO2 23.0 mEq/L 04/29/2021 Unk nown Comp Metabolic Jmh728 ANION GAP 13 04/29/2021 Unkn own Comp Metabolic Shi482 GLUCOSE 97 mg/dL 04/29/2021 Unkn own Comp Metabolic Xzu145 Creat 0.7 mg/dL 04/29/2021 Unkn own Comp Metabolic Bxo201 eGFR 123 ml/min/1.73m2 021 Unknown Comp Metabolic Nak765 BUN 8 mg/dL 04/29/2021 Unkn own Comp Metabolic Fmp183 B/C Ratio 11.3 Ratio 04/29/2021 Unk nown Comp Metabolic Dwl838 CALCIUM 9.4 mg/dL 04/29/2021 Unkn own Comp Metabolic Xjn193 ALK PHOS 77 U/L 04/29/2021 Unkn own Comp Metabolic Wxo545 AST(SGOT) 51 U/L 04/29/2021 Unkn own Comp Metabolic Rsm527 ALT(SGPT) 93 U/L 04/29/2021 Unkn own Comp Metabolic Aqb168 BILI T 0.6 mg/dL 04/29/2021 Unkn own Comp Metabolic Mbe785 ALBUMIN 4.5 g/dL 04/29/2021 Unkn own Comp Metabolic Xbo309 TPRO 7.3 g/dL 04/29/2021 Unkn own Comp Metabolic Fjn775 GLOB 2.8 g/dL 04/29/2021 Unkn own Comp Metabolic Ewd563 A/G Ratio 1.6 Ratio 04/29/2021 Unkn own Comp Metabolic Wcr457 Osmo 268 mOsmo 04/29/2021 Unkn own Tsh Ord6 TSH (3rd IS) 5.19 uIU/mL 04/29/2021 Unkn own Procedures No Procedures data Vital Signs Date Vital 08/18/2021 Blood Pressure 1: 166/88 Code: 8480-6 BMI: 31.0 Code: 41753-4 Heart Rate 1: 75 bpm Height: 5'9" Code: 8302-2 SpO2: 98% Temperature: 3 6.3 (C) / 97.3 (F) Weight: 210 lbs Code: 72641-8 05/12/2021 Blood Pressure 1: 140/88 Code: 8480-6 BMI: 31.6 Code: 27370-4 Heart Rate 1: 86 bpm Height: 5'9" Code: 8302-2 SpO2: 97% Temperature: 3 6.3 (C) / 97.3 (F) Weight: 214 lbs Code: 83046-8 04/28/2021 Blood Pressure 1: 156/98 Code: 8480-6 Heart Rate 1: 101 bpm Height: 5'9" Code: 8302-2 SpO2: 98% Temperature: 36.2 (C) / 97.2 (F) Weight: Code: 23782-3 04/03/2021 Blood Pressure 1: 142/76 Code: 8480-6 Heart Rate 1: 99 bpm Height: 5'9" Code: 8302-2 SpO2: 97% Temperature: 36.3 (C) / 97.4 (F) Weight: Code: 52410-8 03/14/2021 Blood Pressure 1: 144/76 Code: 8480-6 BMI: 31.0 Code: 66520-2 Heart Rate 1: 79 bpm Height: 5'9" Code: 8302-2 SpO2: 95% Temperature: 3 6.3 (C) / 97.4 (F) Weight: 210 lbs Code: 11219-7 Functional Status No Functional Status data Reason For Visit Reason For Visit Effective Dates Notes Hospital Follow Up 08/18/2021 hair loss 05/12/2021 shoulder pain 04/28/2021 skin lesion 04/03/2021 shoulder pain 03/14/2021 Encounters Encounter Performer Location Codes Date ( EST. PATIENT, LEVEL III Diagnosis: Low back pain[ICD10: M54.50] Yandy Byers MD CPT-4: 86238 08/18/2021 ([id number]) 11425 EST. PATIENT, LEVEL IV Diagnosis: Patchy loss of hair[ICD10: L65.9] Diagnosis: Nicotine dependence, cigarettes, uncomplicated[ICD10: F17.210] Diagnosis: Enlarged lymph nodes in armpit[ICD10: R59.0] Nellie Lopez MD, [facility] CPT-4: 31845 05/12/2021 ([id number]) 02344 EST. PATIENT, LEVEL IV Diagnosis: Patchy loss of hair[ICD10: L65.9] Diagnosis: Enlarged lymph nodes in armpit[ICD10: R59.0] Diagnosis: Essential (primary) hypertension[ICD10: I10] Nellie Lopez MD, [facility] CPT-4: 07068 04/28/2021 ([id number]) 10823 EST. PATIENT, LEVEL III Diagnosis: Tick bite of back[ICD10: S30.860A] Nellie albert MD, [facility] CPT-4: 35322 04/03/2021 OFFICE VISIT, NEW - LEVEL 3 Diagnosis: Mass of joint of left shoulder[ICD10: M25.812] Diagnosis: Enlarged lymph nodes in armpit[ICD10: R59.0] Diagnosis: Nicotine dependence, cigarettes, uncomplicated[ICD10: F17.210] Nellie Lopez MD, [facility] CPT-4: 58134 03/14/2021 Plan of Care Planned Activity Notes Codes Status Date Visit Plan: Low back pain - improving - patient may return to work -no lifting over 10 lbs -continue steroids as directed -patient verbalized understanding of plan. 08/18/2021 Patient Education: Patient Medication Summary Completed [...] to wait 05/12/2021 Appointment: Nellie Gonzalez WPtel: [phone] [place] ([place] min[place] Complex 05/12/2021 Patient Education: [...] if needed 04/28/2021 Appointment: Nellie Gonzalez WPtel: [address] [place], [place] [phone] [place] (30 min) Complex 04/28/2021 Patient Education: Patient Medication Summary Completed 04/28/2021 Visit Plan: Tick Bite -tick removed toda y in the office- pt given script for treatment of infected tick bite, call for symptoms of worsening infection or nonhealing. 04/03/2021 Appointment: Nellie Gonzalez WPtel: [address] [place], [place] [phone] [place] (30 min) Complex 04/03/2021 Patient Education: Patient Medication Summary Completed 04/03/2021 Visit Plan: Mass of left distal clavicle with lymph node enlargement- ultrasound shows hypoechoic nodule and radiologist recommends MRI - insurance has approved MRI and he is planning to schedule MRI in [place] due to cost - instructed him to get us a copy of MRI as soon as its available Tobacco use- recommend smoking cessation 03/14/2021 Appointment: Nell[facility] Gonzalez WPtel[phone] New Patient 03/14/2021 Patient Education: Patient Medication Summary Completed 03/14/2021 Patient Education: Smoking and Tobacco Addiction Completed 03/14/2021 Instructions Comment . Low back pain - improving - patient crystal galindo return to work -no lifting over 10 [...] he is planning to schedule MRI in [place] due to cost - instructed him to [...]
== END 2021-10-12 20:42 | disposition left against medical advice (07) ==
LOC: EDUNIT# 20:11 → ER 20:12
DX: R50.9 Fever, unspecified (principal); R51.9 Headache, unspecified

== ENCOUNTER 2022-06-08 21:55 | Emergency (ER) | payer SELFPAY ==
[~2022-06-08] VITALS: Ht 175 cm; Wt 87.8 kg
--- NOTE | 2022-06-08 22:16 | ED Head Injury ---
General Stated Complaint: HIT IN HEAD WITH SOFTBALL Source: patient Exam Limitations: no limitations (SANDRA RAGLAND APRN) History of Present Illness Date Seen by Provider: Jun 08, 2022 Time Seen by Provider: 22:11 Initial Comments To ER by POV with c/o concern for ICH. He was struck with a baseball to left eyebrow during his daughters softball practice last night with one of her coaches pitches. He has headache, pressure, nausea. No vomiting. No weakness in any extremity or confusion. No use of anticoagulant. Went to [facility] and they recommended he come here for CT to evaluate for intracranial hemorrhage and after debating about that he finally decided to come get this checked out. He did have some bleeding at the site yesterday but that has stopped. Now just has some swelling localized over the left eyebrow. No vision changes. Tetanus is up-to-date within the last 5 years. Occurred: yesterday Severity: moderate Location: frontal Method of Injury: direct blow Loss of Consciousness: no loss of consciousness Associated Systoms: Headaches, Nausea/Vomiting (SANDRA RAGLAND APRN) Allergies and Home Medications Allergies Coded Allergies: Penicillins (Verified Allergy, Unknown, 06/04/18) Patient Home Medication List Home Medication List Reviewed: Yes (SANDRA RAGLAND APRN) Cyclobenzaprine HCl (Cyclobenzaprine HCl) 10 Mg Tablet, 10 MG PO Q8H PRN for SPASMS Prescribed by: DAVE JUAREZ on 08/13/21 1433 Methylprednisolone (Medrol) 4 Mg Tab.ds.pk, 4 MG PO UD Prescribed by: DAVE JUAREZ on 08/13/21 1433 David/Polymyx B Sulf/Dexameth (Maxitrol Eye Drops) 5 Ml Drops.susp, 2 DROPS OP QID Prescribed by: LILI ALVAREZ on 06/08/18 1844 Review of Systems Review of Systems Constitutional: see HPI Eyes: No Symptoms Reported Ears, Nose, Mouth, Throat: no symptoms reported Respiratory: no symptoms reported Cardiovascular: no symptoms reported Gastrointestinal: nausea Genitourinary: no symptoms reported Musculoskeletal: no symptoms reported Skin: no symptoms reported Psychiatric/Neurological: Headache (SANDRA RAGLAND APRN) Past Onfxfix-Sqeuvw-Rxcomc Hx Immunizations Up To Date Tetanus Booster (TDap): Less than 5yrs PED Vaccines UTD: Yes (SANDRA RAGLAND APRN) Seasonal Allergies Seasonal Allergies: No (SANDRA RAGLAND APRN) Past Medical History Surgeries: No Respiratory: No Cardiac: No Neurological: No Genitourinary: No Gastrointestinal: No Musculoskeletal: Yes (CHRONIC LEFT SHOULDER PAIN ) Chronic Back Pain Endocrine: No HEENT: No Cancer: No Did You Recieve Any Treatments: No Psychosocial: No Integumentary: No Blood Disorders: No (SANDRA RAGLAND APRN) Physical Exam Vital Signs Vital Signs - First Documented 06/08/22 22:04 Temp 36.6 Pulse 89 Resp 16 B/P (MAP) 160/112 (128) Pulse Ox 98 O2 Delivery Room Air (LEIGH ANN AGUILA MD) Vital Signs Capillary Refill : (SANDRA RAGLAND APRN) Height, Weight, BMI Height: 5'9.00" Weight: 195lbs. oz. 88.241509nj; 31.00 BMI Method:Stated General Appearance: WD/WN, no apparent distress HEENT: PERRL/EOMI, normal ENT inspection, TMs normal, other (No ochoa sign no raccoon eyes no hemotympanum. No epistaxis. No evidence of globe injury no subconjunctival hemorrhage. PERRLA EOMI. Left lateral eyebrow is ecchymotic an d edematous) Neck: non-tender, full range of motion Respiratory: no respiratory distress, no accessory muscle use Gastrointestinal: normal bowel sounds, non tender Extremities: normal range of motion, non-tender Psychiatric: alert, oriented x 3 Crainal Nerves: normal hearing, normal speech, PERRL Motor/Sensory: no motor deficit, no sensory deficit Skin: normal color, warm/dry (SANDRA RAGLAND APRN) Irasema Coma Score Best Eye Response: (4) Open Spontaneously Best Verbal Response: (5) Oriented Best Motor Response: (6) Obeys Commands Irasema Total: 15 (SANDRA RAGLAND APRN) Progress/Results/Core Measures Results/Orders Vital Signs/I&O 06/08/22 06/08/22 22:04 22:55 Temp 36.6 36.6 Pulse 89 87 Resp 16 16 B/P (MAP) 160/112 (128) 155/99 Pulse Ox 98 98 O2 Delivery Room Air Room Air (LEIGH ANN AGUILA MD) Diagnostic Imaging Diagonstic Imaging: CT Plain Films/CT/US/NM/MRI: head Comments NAME: JENNY VALENZUELA [facility] REC#: [id number] PT STATUS: DEP ER : 1970 PHYSICIAN: SANDRA RAGLAND APRN ADMIT DATE: 06/08/22/ER Signed Date of Exam:06/08/22 CT HEAD WO PROCEDURE: CT head without contrast. TECHNIQUE: Multiple contiguous axial images were obtained through the brain without the use of intravenous contrast. Auto Exposure Controls were utilized during the CT exam to meet ALARA standards for radiation dose reduction. INDICATION: 52-year-old male, hit in left eye by softball. CORRELATION: None FINDINGS: There is no midline shift or mass effect. The ventricles and sulci are unremarkable. No evidence for acute intracranial hemorrhage, abnormal extra-axial fluid collections or cerebral edema is present. The basilar cisterns are unremarkable. The bony calvarium is intact. Trace areas of mucosal thickening. Asymmetric left periorbital soft tissue edema is present. The globes appear to be fairly symmetric and retro-orbital structures are unremarkable. No suggestion for orbital wall and/or floor fracture. IMPRESSION: Negative appearing noncontrast CT of the head. Asymmetric left periorbital soft tissue swelling. Dictated by: Dictated on workstation # [id number] Dict: 06/08/222232 Trans: 06/08/222324 BHAVIN [id number] Interpreted by: FARHAN ARCHER DO Electronically signed by: FARHAN ARCHER DO 06/08/222324 (LEIGH ANN AGUILA MD) Departure Impression Primary Impression: Concussion Disposition: 01 HOME, SELF-CARE Condition: Stable Departure-Patient Inst. Decision time for Depature: 22:15 (SANDRA RAGLAND APRN) Referrals: CECI FRANCISCO MD (PCP/Family) Primary Care Physician Patient Instructions: Concussion, Adult (DC) Add. Discharge Instructions: 1. The basis of concussion management is rest, both physical and cognitive. It would be donnelly to stay home from work tomorrow and the next day at least to allow some additional rest. Return to ER for any confusion severe headache uncontrollable vomiting or other concerns. Typically your symptoms would resolve over the course of a couple of days but in some individuals they can las t for several weeks. Work/School Note: Work Release Form Date Seen in the Emergency Department: Jun 08, 2022 Return to Work: Jun 11, 2022 ATTENDING PHYSICIAN NOTE: I was physically present as attending physician in the emergency department during the care of this patient. CT scan report was reviewed by me prior to patient discharge. CT demonstrated no intracranial or calvarial injuries. Only soft tissue swelling was noted. Discharge instructions have been prepared by Sandra Ragland NP. I have proved discharge after reviewing CT results. I was otherwise not directly involved in the decision making or delivery of care for this patient. (LEIGH ANN AGUILA MD) SANDRA RAGLAND APRN Jun 08, 2022 22:16 LEIGH ANN AGUILA MD Jun 09, 2022 04:05
[2022-06-08] MEDS ORDERED: RX-ONDANSETRON 4 MG ODT (ZOFRAN) PPK #4 PO STA (22:17)
--- NOTE | 2022-06-08 22:40 | Diagnostic Imaging Report ---
PROCEDURE: CT head without contrast. TECHNIQUE: Multiple contiguous axial images were obtained through the brain without the use of intravenous contrast. Auto Exposure Controls were utilized during the CT exam to meet ALARA standards for radiation dose reduction. INDICATION: 52-year-old male, hit in left eye by softball. CORRELATION: None FINDINGS: There is no midline shift or mass effect. The ventricles and sulci are unremarkable. No evidence for acute intracranial hemorrhage, abnormal extra-axial fluid collections or cerebral edema is present. The basilar cisterns are unremarkable. The bony calvarium is intact. Trace areas of mucosal thickening. Asymmetric left periorbital soft tissue edema is present. The globes appear to be fairly symmetric and retro-orbital structures are unremarkable. No suggestion for orbital wall and/or floor fracture. IMPRESSION: Negative appearing noncontrast CT of the head. Asymmetric left periorbital soft tissue swelling. Dictated by: Dictated on workstation # [id number]
[2022-06-08 22:55] VITALS: BP 155/99
== END 2022-06-08 22:55 | disposition home or self-care (01) ==
LOC: EDUNIT# 21:55 → ER 21:57
DX: S06.0X0A Concussion without loss of consciousness, initial encounter (principal); Z28.310 Unvaccinated for COVID-19; W21.03XA Struck by baseball, initial encounter
CPT/HCPCS: 70450

== ENCOUNTER 2023-02-21 21:40 | Emergency (ER) | payer SELFPAY ==
[2023-02-21 21:47] VITALS: BP 132/100
[2023-02-21] MEDS ORDERED: NITROGLYCERIN 0.4 MG SL TABS BTL 25'S SL PRN (22:00)
[2023-02-21] MEDS ORDERED: ASPIRIN 81 MG CHEW (CHILDREN'S ASA) PO ONE (22:00)
[2023-02-21 22:03] LABS: BASOPHILS # (AUTO) 0.1 10^3/uL (0.0-0.1); BASOPHILS % (AUTO) 1 % (0-10); EOSINOPHILS # (AUTO) 0.4 10^3/uL (0.0-0.3); EOSINOPHILS % (AUTO) 4 % (0-10); HEMATOCRIT 42 % (40-54); HEMOGLOBIN 15.2 g/dL (13.3-17.7); LYMPHOCYTES # (AUTO) 3.5 10^3/uL (1.0-4.0); LYMPHOCYTES % (AUTO) 37 % (12-44); MEAN CORPUSCULAR HEMOGLOBIN 33 pg (25-34); MEAN CORPUSCULAR HGB CONC 37 g/dL (32-36); MEAN CORPUSCULAR VOLUME 91 fL (80-99); MEAN PLATELET VOLUME 10.6 fL (9.0-12.2); MONOCYTES # (AUTO) 0.6 10^3/uL (0.0-1.0); MONOCYTES % (AUTO) 6 % (0-12); NEUTROPHILS # (AUTO) 4.9 10^3/uL (1.8-7.8); NEUTROPHILS % (AUTO) 52 % (42-75); PLATELET COUNT 228 10^3/uL (130-400); WHITE BLOOD COUNT 9.5 10^3/uL (4.3-11.0)
--- NOTE | 2023-02-21 22:04 | ED General ---
General Chief Complaint: Chest Pain Stated Complaint: CHEST PAIN/SOA/DIZZINESS Source of Information: Patient History of Present Illness Date Seen by Provider: February 21, 2023 Time Seen by Provider: 21:48 Initial Comments PT ARRIVES VIA POV FROM HOME PT STATES ABOUT 2 HOURS AGO, HE HAD A SUDDEN ONSET OF: -RIGHT UPPER CHEST PAIN--STATES PAIN WAS NOT VERY BAD, AND IS GONE NOW. -SHORTNESS OF BREATH--GONE NOW -"HEART THUMPING"--GONE NOW -DIZZINESS--GONE NOW -HEADACHE-PAIN WAS 7/10, NOT VERY BAD NOW. PT STATES HE HAS HAD A "STRESSFUL DAY"--DAUGHTER SPRAINED HER KNEE, SON "TRYING TO GET SOME STUFF DONE" STATES HE WAS FEELING STRESSED, AND SAT DOWN AND DRANK A BEER--PT IS ADAMANT THAT HE ONLY DRANK ONE BEER, AND WAS TRYING TO RELAX, THEN " STARTED THINKING ABOUT EVERYTHING THAT HAD GONE ON AND I GOT OVERWHELMED AND I THINK I HAD A PANIC ATTACK" DENIES HISTORY OF SIMILAR DENIES HISTORY OF ANY MEDICAL PROBLEMS STATES HE IS WORRIED THAT HIS BLOOD PRESSURE IS HIGH--STATES HIS DAUGHTER TOOK HIS BLOOD PRESSURE A FEW WEEKS AGO "AND IT WAS A LITTLE HIGH" ( DAUGHTER IS IN [employer]). HE DOES NOT RECALL EXACT READING. HE HAS NOT HAD HIS BLOOD PRESSURE CHECKED AGAIN AND HAS NOT ATTEMPTED TO CONTACT HIS DR AT ANY TIME. PCP: DR. FRANCISCO, BUT HAS NOT SEEN "IN QUITE AWHILE" Allergies and Home Medications Allergies Coded Allergies: Penicillins (Verified Allergy, Unknown, 06/04/18) Patient Home Medication List Home Medication List Reviewed: Yes Cyclobenzaprine HCl (Cyclobenzaprine HCl) 10 Mg Tablet, 10 MG PO Q8H PRN for SPASMS Prescribed by: DAVE JUAREZ on 08/13/21 1433 Methylprednisolone (Medrol) 4 Mg Tab.ds.pk, 4 MG PO UD Prescribed by: DAVE JUAREZ on 08/13/21 1433 David/Polymyx B Sulf/Dexameth (Maxitrol Eye Drops) 5 Ml Drops.susp, 2 DROPS OP QID Prescribed by: LILI ALVAREZ on 06/08/18 1844 Review of Systems Review of Systems Constitutional: see HPI EENTM: no symptoms reported Respiratory: see HPI Cardiovascular: see HPI Gastrointestinal: no symptoms reported Genitourinary: no symptoms reported Musculoskeletal: no symptoms reported Skin: no symptoms reported Psychiatric/Neurological: See HPI Hematologic/Lymphatic: No Symptoms Reported Immunological/Allergic: no symptoms reported Past Gfhtebz-Zvvslu-Hvtihc Hx Patient Social History Tobacco Use?: Yes Tobacco type used: Cigarettes Smoking Status: Current Everyday Smoker Substance use?: No Alcohol Use?: Yes Alcohol type: Beer Alcohol Frequency: Couple times a week Immunizations Up To Date Tetanus Booster (TDap): Less than 5yrs PED Vaccines UTD: Yes Seasonal Allergies Seasonal Allergies: No Past Medical History Surgeries: No Respiratory: No Cardiac: No Neurological: No Genitourinary: No Gastrointestinal: No Musculoskeletal: Yes (CHRONIC LEFT SHOULDER PAIN ) Chronic Back Pain Endocrine: No HEENT: No Cancer: No Did You Recieve Any Treatments: No Psychosocial: No Integumentary: No Blood Disorders: No Family Medical History SOCIAL HISTORY: -SMOKES 1 PPD -ETOH--DRNKS SEVERAL TIMES A WEEK -NO DRUGS. Physical Exam Vital Signs Vital Signs - First Documented 02/21/23 21:47 Temp 36.2 Pulse 74 Resp 16 B/P (MAP) 132/100 (111) Pulse Ox 98 O2 Delivery Room Air Capillary Refill : Height, Weight, BMI Height: 5'9.00" Weight: 195lbs. oz. 88.377612bx; 28.00 BMI Method:Stated General Appearance: No Apparent Distress, WD/WN, Anxious (VERY ANXIOUS. TALKS NON-STOP AT GREAT LENGTH. 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 Norm as Tested, Other (VERY ANXIOUS; SPEECH IS CLEAR AND GAIT IS STEADY) Skin: Normal Color, Warm/Dry; No Tattoos/Piercings (TATTOOS) Progress/Results/Core Measures Suspected Sepsis SIRS Temperature: Pulse: Respiratory Rate: Laboratory Tests 02/21/23 21:55: White Blood Count 9.5 Blood Pressure / Mean: Laboratory Tests 02/21/23 21:55: Creatinine 0.71, INR Comment 1.0, Platelet Count 228, Total Bilirubin 1.1H Results/Orders Lab Results Laboratory Tests Test 02/21/23 21:55 Range/Units White Blood Count 9.5 4.3-11.0 10^3/uL Red Blood Count 4.55 4.30-5.52 10^6/uL Hemoglobin 15.2 13.3-17.7 g/dL Hematocrit 42 40-54 % Mean Corpuscular Volume 91 80-99 fL Mean Corpuscular Hemoglobin 33 25-34 pg Mean Corpuscular Hemoglobin Concent 37 H 32-36 g/dL Red Cell Distribution Width 11.5 10.0-14.5 % Platelet Count 228 130-400 10^3/uL Mean Platelet Volume 10.6 9.0-12.2 fL Immature Granulocyte % (Auto) 0 % Neutrophils (%) (Auto) 52 42-75 % Lymphocytes (%) (Auto) 37 12-44 % Monocytes (%) (Auto) 6 0-12 % Eosinophils (%) (Auto) 4 0-10 % Basophils (%) (Auto) 1 0-10 % Neutrophils # (Auto) 4.9 1.8-7.8 10^3/uL Lymphocytes # (Auto) 3.5 1.0-4.0 10^3/uL Monocytes # (Auto) 0.6 0.0-1.0 10^3/uL Eosinophils # (Auto) 0.4 H 0.0-0.3 10^3/uL Basophils # (Auto) 0.1 0.0-0.1 10^3/uL Immature Granulocyte # (Auto) 0.0 0.0-0.1 10^3/uL Prothrombin Time 13.2 12.2-14.7 SEC INR Comment 1.0 0.8-1.4 Activated Partial Thromboplast Time 32 24-35 SEC D-Dimer 0.53 H 0.00-0.49 UG/ML Sodium Level 135 135-145 MMOL/L Potassium Level 3.8 3.6-5.0 MMOL/L Chloride Level 103 98-107 MMOL/L Carbon Dioxide Level 20 L 21-32 MMOL/L Anion Gap 12 5-14 MMOL/L Blood Urea Nitrogen 7 7-18 MG/DL Creatinine 0.71 0.60-1.30 MG/DL Estimat Glomerular Filtration Rate 109 BUN/Creatinine Ratio 10 Glucose Level 95 70-105 MG/DL Calcium Level 8.4 L 8.5-10.1 MG/DL Corrected Calcium 8.0 L 8.5-10.1 MG/DL Magnesium Level 2.1 1.6-2.4 MG/DL Total Bilirubin 1.1 H 0.1-1.0 MG/DL Aspartate Amino Transf (AST/SGOT) 15 5-34 U/L Alanine Aminotransferase (ALT/SGPT) 18 0-55 U/L Alkaline Phosphatase 71 40-136 U/L Total Creatine Kinase 75 30-200 U/L Creatine Kinase MB 1.7 <6.6 NG/ML Myoglobin 29.0 10.0-92.0 NG/ML Troponin I < 0.028 <0.028 NG/ML B-Type Natriuretic Peptide < 10.0 <100.0 PG/ML Total Protein 7.2 6.4-8.2 GM/DL Albumin 4.5 3.2-4.5 GM/DL Amylase Level 48 25-125 U/L Lipase 26 8-78 U/L Serum Alcohol 202 H <10 MG/DL My Orders Orders - DAVE JUAREZ DO Ekg Tracing (02/21/23 21:46) Cbc With Automated Diff (02/21/23 21:47) Magnesium (02/21/23 21:47) Chest 1 View, Ap/Pa Only (02/21/23 21:47) Comprehensive Metabolic Panel (02/21/23 21:47) Myoglobin Serum (02/21/23 21:47) Protime With Inr (02/21/23 21:47) Partial Thromboplastin Time (02/21/23 21:47) O2 (02/21/23 21:47) Monitor-Rhythm Ecg Trace Only (02/21/23 21:47) Ed Iv/Invasive Line Start (02/21/23 21:47) Creatine Kinase (02/21/23 21:47) Creatine Kinase Mb (02/21/23 21:47) Lipase (02/21/23 21:47) Amylase (02/21/23 21:47) Bnp Jus (02/21/23 21:47) Fibrin Degradation Products (02/21/23 21:47) Troponin I Jus (02/21/23 21:47) Nitroglycerin 0.4 Mg Btl 25's (Nitrostat (02/21/23 22:00) Aspirin Chewable Tablet (Baby Aspirin Ch (02/21/23 22:00) Isolation Central Supply Req (02/21/23 21:47) Alcohol (02/21/23 23:09) Medications Given in ED Current Medications Medications Dose Ordered Sig/Jhonny Route Start Time Stop Time Status Last Admin Dose Admin Aspirin 324 mg ONCE ONCE PO 02/21/23 22:00 02/21/23 22:01 DC 02/21/23 22:01 324 MG Vital Signs/I&O 02/21/23 21:47 Temp 36.2 Pulse 74 Resp 16 B/P (MAP) 132/100 (111) Pulse Ox 98 O2 Delivery Room Air Capillary Refill : Progress Note : Progress Note PT REFUSES COVID TESTING 2310--PT IS BECOMING SOMEWHAT AGITATED, AND BEING VERBALLY AGGRESSIVE WITH STAFF AND MYSELF. PT STATES HE FEELS FINE AND WANTS TO LEAVE. EXPLAINED TO HIM THAT ALL OF HIS TEST RESULTS WERE NOT BACK YET, AND HAD ALSO PREVIOUSLY EXPLAINED TO HIM THE ANTICIPATED COURSE, WELL 3 HOUR REPEAT EKG/TROPONIN TESTING. PT CONTINUES TO BE VERBALLY AGGRESSIVE, AND INSISTS ON LEAVING. AMA PAPERS SIGNED. PT WAS ADVISED OF RISKS OF LEAVING INCLUDING , AND BENEFITS OF STAYING AND HE REFUSES TO STAY. ECG Initial ECG Impression Date: February 21, 2023 Initial ECG Impression Time: 21:53 Initial ECG Rate: 82 Initial ECG Rhythm: Normal Sinus Initial ECG Intervals: Normal Initial ECG Impression: Nonspecific Changes (INFERIOR Q WAVES LEAD 3 AND AVF) Initial ECG Comparisson: No Previous ECG Available Comment INTERPRETED BY ME Diagnostic Imaging Comments CXR--PENDING RADIOLOGIST REVIEW -NO ACUTE PROCESS Reviewed: Reviewed by Me Departure Impression Primary Impression: Left against medical advice Disposition: 07 AGAINST MEDICAL ADVICE Condition: Against Medical Advice Departure-Patient Inst. Referrals: CECI FRANCISCO MD (PCP/Family) Primary Care Physician DAVE JUAREZ DO February 21, 2023 22:04
[2023-02-21 22:16] LABS: PROTHROMBIN TIME PATIENT 13.2 SEC (12.2-14.7)
[2023-02-21 22:28] LABS: ALBUMIN 4.5 GM/DL (3.2-4.5); BILIRUBIN,TOTAL 1.1 MG/DL (0.1-1.0); CALCIUM 8.4 MG/DL (8.5-10.1); CREATININE SERUM 0.71 MG/DL (0.60-1.30); MAGNESIUM 2.1 MG/DL (1.6-2.4); POTASSIUM 3.8 MMOL/L (3.6-5.0); TOTAL PROTEIN 7.2 GM/DL (6.4-8.2)
[2023-02-21 22:35] LABS: CREATINE KINASE MB 1.7 NG/ML (<6.6)
--- NOTE | 2023-02-22 07:36 | Diagnostic Imaging Report ---
CHEST 1 VIEW, AP/PA ONLY INDICATION: Chest pain. COMPARISON: None. FINDINGS: Lungs: Normal lung volume. No focal consolidation. Stable pulmonary vasculature. Pleura: No pleural effusion or pneumothorax. Heart and Mediastinum: Cardiomediastinal silhouette and great vessels of the thorax are stable. Osseous Structures and Soft Tissues: No acute osseous abnormality. Normal soft tissues. IMPRESSION: No acute cardiopulmonary process. Dictated by: Dictated on workstation # [id number]
== END 2023-02-21 23:13 | disposition left against medical advice (07) ==
LOC: EDUNIT# 21:40 → ER 21:43
DX: R07.89 Other chest pain (principal); R51.9 Headache, unspecified; R42 Dizziness and giddiness; F17.210 Nicotine dependence, cigarettes, uncomplicated
CPT/HCPCS: 71045; 80053; 82150; 82550; 82553; 83690; 83735; 83874; 83880; 84484; 85025; 85379; 85610; 85730; 93005; 93041; 99284; G0480; 36415; 80320